=== PATIENT | female | born 1970 | race American Indian/Alaskan Native ===

== ENCOUNTER 2018-08-10 18:50 | Emergency (ER) | payer SELFPAY ==
[2018-08-10 19:37] VITALS: BMI 26.6
[2018-08-10 19:41] VITALS: RESP 18
--- NOTE | 2018-08-10 20:54 | ED PDOC ---
Arrival/HPI - General Historian: Patient - History of Present Illness Narrative History of Present Illness (Text): 08/10/18 20:15 48 year old female, whose past medical history includes tonsillectomy, presents to the emergency department complaining of sore throat for the past 4 days associated with nasal congestion. Patient states the sore throat is worse with swallowing and with neck movement. She denies taking any medications for the pain. Patient denies any fever, chills, cough, shortness of breath, chest pain, abdominal pain, nausea, vomiting, diarrhea, headache, vision changes, dizziness, or any other complaints. Time/Duration: Other (4 days) Symptom Onset: Gradual Symptom Course: Unchanged Activities at Onset: Light Context: Home <Samara Whaley - Last Filed: 08/11/18 01:54> <Ash Plunkett - Last Filed: 08/11/18 05:53> - General Chief Complaint: ENT Problem Past Medical History - Provider Review Nursing Documentation Reviewed: Yes - Infectious Disease Hx of Infectious Diseases: None - Tetanus Immunization Tetanus Immunization: Unknown - Past Medical History Past Medical History: No Previous - Cardiac Hx Cardiac Disorders: No - Pulmonary Hx Respiratory Disorders: No - Neurological Hx Neurological Disorder: No - HEENT Hx HEENT Disorder: Yes Other/Comment: PT. FOR SURGERY 11/09/15-DX: CHRONIC TONSILLITIS - Renal Hx Renal Disorder: No - Endocrine/Metabolic Hx Endocrine Disorders: No - Hematological/Oncological Hx Blood Disorders: No - Integumentary Hx Dermatological Disorder: No - Musculoskeletal/Rheumatological Hx Musculoskeletal Disorders: No - Gastrointestinal Hx Gastrointestinal Disorders: No - Genitourinary/Gynecological Hx Genitourinary Disorders: Yes Hx Sexually Transmitted Diseases: Yes (MANY YEARS AGO) - Psychiatric Hx Psychophysiologic Disorder: No Hx Substance Use: No - Surgical History Hx Appendectomy: Yes Other/Comment: LEFT BREAST CYST REMOVED UNDER LOCAL ANESTHESIA. - Anesthesia Hx Anesthesia: Yes (LOCAL ONLY) Hx Anesthesia Reactions: No Hx Malignant Hyperthermia: No - Suicidal Assessment Feels Threatened In Home Enviroment: No <Samara Whaley - Last Filed: 08/11/18 01:54> Family/Social History - Physician Review Nursing Documentation Reviewed: Yes Family/Social History: No Known Family HX Smoking Status: Light Smoker < 10 Cigarettes Daily Hx Alcohol Use: Yes Frequency of alcohol use: Socially Hx Substance Use: No Hx Substance Use Treatment: No <Samara Whaley - Last Filed: 08/11/18 01:54> Allergies/Home Meds <Samara Whaley - Last Filed: 08/11/18 01:54> <DimitriosAsh lloyd - Last Filed: 08/11/18 05:53> Allergies/Adverse Reactions: Allergies No Known Allergies Allergy (Verified 10/30/16 17:58) Review of Systems - Physician Review All systems were reviewed & negative as marked: Yes - Review of Systems Constitutional: absent: Fevers, Other (chills) Eyes: absent: Vision Changes ENT: Sore Throat, Other (Nasal congestion) Respiratory: absent: SOB Cardiovascular: absent: Chest Pain Gastrointestinal: absent: Abdominal Pain, Diarrhea, Nausea, Vomiting Genitourinary Female: absent: Dysuria Neurological: absent: Headache, Dizziness <Samara Whaley - Last Filed: 08/11/18 01:54> Physical Exam Vital Signs Reviewed: Yes Vital Signs Temp Pulse Resp BP Pulse Ox 08/10/18 19:40 99 F 89 18 124/78 100 Temperature: Afebrile Blood Pressure: Normal Pulse: Regular Respiratory Rate: Normal Appearance: Positive for: Well-Appearing, Non-Toxic, Comfortable Pain Distress: None Mental Status: Positive for: Alert and Oriented X 3 - Systems Exam Head: Present: Atraumatic, Normocephalic Pupils: Present: PERRL Extroacular Muscles: Present: EOMI Conjunctiva: Present: Normal Mouth: Present: Moist Mucous Membranes Pharnyx: Present: ERYTHEMA (Mild). No: EXUDATE, Other (No tonsils) Neck: Present: Normal Range of Motion, Other ((+) Mild tenderness to cervical paraspinal muscles bilaterally. (+)Frontal tonsillar lymph nodes swelling bilat erally (-) no tenderness). No: Meningeal Signs Respiratory/Chest: Present: Clear to Auscultation, Good Air Exchange. No: Respiratory Distress, Accessory Muscle Use Cardiovascular: Present: Regular Rate and Rhythm, Normal S1, S2. No: Murmurs Abdomen: No: Tenderness, Distention, Peritoneal Signs Neurological: Present: GCS=15, CN II-XII Intact, Speech Normal Skin: Present: Warm, Dry, Normal Color. No: Rashes Psychiatric: Present: Alert, Oriented x 3, Normal Insight, Normal Concentration <Samara Whaley - Last Filed: 08/11/18 01:54> Vital Signs Temp Pulse Resp BP Pulse Ox 08/10/18 23:08 98.3 F 74 18 130/73 98 08/10/18 19:40 99 F 89 18 124/78 100 <DimitriosAsh - Last Filed: 08/11/18 05:53> Medical Decision Making ED Course and Treatment: 08/10/18 20:15 Impression: 48 year old female presents complaining of sore throat for the past 4 days associated with nasal congestion. Sore throat worse when swallowing and neck movement. Plan: -- CT Neck Soft tissue w/ contrast -- Labs -- Toradol, Tylenol -- Throat culture, Urine Culture -- Influenza A B, Rapid Strep -- Urinalysis w/ micro -- Reassess and disposition Progress Notes: EXAM: CT Neck with Intravenous Contrast. Electronically signed on Aug 10, 2018 11:46:23 PM EST by: Jose F Mac M.D IMPRESSION: Sinusitis. Unremarkable CT neck with IV contrast otherwise. 08/10/18 23:08 On reevaluation, patient is in no acute distress. I have discussed the results and plan with the patient, who expresses understanding. Patient given the opportunity to ask question, all questions were answered and there is agreement with the plan to discharge the patient home with prescription for Amoxicillin. Patient is stable for discharge. Patient was instructed to follow up with physician/clinic in 1-2 days or return if symptoms persist/worsen or new concerning symptoms arise. - Lab Interpretations I have reviewed the lab results: Yes - RAD Interpretation Radiology Orders: 08/10/18 20:30 NECK SOFT TISSUE W/CONTRAST [CT] Stat <Samara Whaley - Last Filed: 08/11/18 01:54> - Lab Interpretations Lab Results: 08/10/18 21:00 08/10/18 21:00 Lab Results 08/10/18 22:19: Urine Color Yellow, Urine Appearance Clear, Urine pH 6.0, Ur Specific [place] 1.020, Urine Protein Negative, Urine Glucose (UA) Negative, Urine Ketones Negative, Urine Blood Trace-intact H, Urine Nitrate Negative, Urine Bilirubin Negative, Urine Urobilinogen 0.2, Ur Leukocyte Esterase Negative, Urine RBC 0 - 2, Urine WBC 0 - 2, Ur Epithelial Cells 1 - 3, Urine Bacteria Neg 08/10/18 22:19: Grp A Beta Strep Ag Negative 08/10/18 21:00: Influenza Typ A,B (EIA) Negative for flu a/b 08/10/18 21:00: Sodium 137, Potassium 3.7, Chloride 105, Carbon Dioxide 24, A nion Gap 12, BUN 9, Creatinine 0.6 L, Est GFR ( Amer) > 60, Est GFR (Non- Af Amer) > 60, Random Glucose 97, Calcium 9.0, Total Bilirubin 0.3, AST 19, ALT 24, Alkaline Phosphatase 72, Total Protein 7.3, Albumin 3.8, Globulin 3.5, Albumin/Globulin Ratio 1.1 08/10/18 21:00: WBC 12.8 H, RBC 3.83, Hgb 12.0, Hct 35.4 L, MCV 92.4, MCH 31.3, MCHC 33.9, RDW 12.9, Plt Count 238, MPV 11.0, Gran % 76.0 H, Lymph % (Auto) 17.4 L, [place] % (Auto) 5.9, Eos % (Auto) 0.6 L, Baso % (Auto) 0.1, Gran # 9.73 H, Lymph # (Auto) 2.2, [place] # (Auto) 0.8 H, Eos # (Auto) 0.1, Baso # (Auto) 0.01 - RAD Interpretation Radiology Orders: 08/10/18 20:30 NECK SOFT TISSUE W/CONTRAST [CT] Stat - Medication Orders Current Medication Orders: Discontinued Medications Acetaminophen (Tylenol 325mg Tab) 650 mg PO STAT STA Stop: 08/10/18 23:10 Last Admin: 08/10/18 23:51 Dose: 650 mg MAR Pain/Vitals Document 08/10/18 23:51 RG (Rec: 08/10/18 23:53 [facility] [place]-ER-20) Pain Reassessment Is This A Pain ReAssessment? Yes Sleep Is patient sleeping during reassessment? No Presence of Pain Presence of Pain Yes Location Pain Location Body Site Neck Description Acute Ketorolac Tromethamine (Toradol) 30 mg IVP STAT STA Stop: 08/10/18 21:46 Last Admin: 08/10/18 22:07 Dose: 30 mg MAR Pain Assessment Document 08/10/18 22:07 (Rec: 08/10/18 22:07 [facility]-ER-20) Pain Reassessment Is this a pain reassessment? Yes Presence of Pain Presence of Pain Yes Location Pain Location Body Site Neck Description Description Acute Intensity of Pain at present 5 IVP Administration Document 08/10/18 22:07 (Rec: 08/10/18 22:07 [facility]-ER-20) Charges for Administration # of IVP Administrations 1 Re-Assess: MAR Pain Assessment Document 08/10/18 23:07 (Rec: 08/10/18 23:53 [facility]-ER-20) Pain Reassessment Is this a pain reassessment? Yes Sleep Is patient sleeping during reassessment? No Presence of Pain Presence of Pain Yes <Ash Plunkett - Last Filed: 08/11/18 05:53> - Scribe Statement The provider has reviewed the documentation as recorded by the Josue Payne Provider Scribe Attestation: All medical record entries made by the Josue were at my direction and personally dictated by me. I have reviewed the chart and agree that the record accurately reflects my personal performance of the history, physical exam, medical decision making, and the department course for this patient. I have also personally directed, reviewed, and agree with the discharge instructions and disposition. <Samara Whaley - Last Filed: 08/11/18 01:54> - PA / [employer] / Resident Statement / has reviewed & agrees with the documentation as recorded. / has examined the patient and agrees with the treatment plan. <Ash Plunkett - Last Filed: 08/11/18 05:53> Disposition/Present on Arrival - Present on Arrival History of DVT/PE: No History of Uncontrolled Diabetes: No Urinary Catheter: No History of Decub. Ulcer: No History Surgical Site Infection Following: None <Samara Whaley - Last Filed: 08/11/18 01:54> - Present on Arrival Any Indicators Present on Arrival: No - Disposition Have Diagnosis and Disposition been Completed?: Yes Disposition Time: 01:00 <Ash Plunkett - Last Filed: 08/11/18 05:53> - Disposition Diagnosis: Sinusitis Disposition: HOME/ ROUTINE Condition: IMPROVED Discharge Instructions (ExitCare): Sinusitis in Adults Additional Instructions: Take antibiotic twice daily for 10 days Increase fluids to stay hydrated Followup with primary doctor within 2 days Return to ER for any new/worsening symptoms Prescriptions: Amoxicillin/Clavulanate [Augmentin 250-62.5] 875 mg PO Q12H #350 ml Referrals: Alex Bateman DO [Staff Provider] - Follow up with primary Forms: Cignis (Nepali)
[2018-08-10 21:17] LABS: BASO # 0.01 K/mm3 (0.0-2.0); BASO % 0.1 % (0.0-3.0); EOS # 0.1 (0.0-0.7); EOS % 0.6 % (1.5-5.0); GRAN # 9.73 (1.4-6.5); LYMPH # 2.2 (1.2-3.4); LYMPH % 17.4 % (22.0-35.0); MEAN CELL VOLUME 92.4 fl (80.0-105.0); MEAN CORPUSCULAR HEMOGLOBIN 31.3 pg (25.0-35.0); MEAN CORPUSCULAR HGB CONC 33.9 g/dl (31.0-37.0); MONO # 0.8 (0.1-0.6); MONO % 5.9 % (1.0-6.0); RBC 3.83 10^6/uL (3.5-6.1); RED CELL DISTRIBUTION WIDTH 12.9 % (11.5-14.5); WHITE BLOOD COUNT 12.8 10^3/uL (4.5-11.0)
[2018-08-10 21:43] LABS: ALB/GLOB RATIO 1.1 (1.1-1.8); ALBUMIN 3.8 g/dL (3.0-4.8); ALT/SGPT 24 U/L (7-56); AST/SGOT 19 U/L (14-36); BLOOD UREA NITROGEN 9 mg/dL (7-21); GFR NON-AFRICAN AMERICAN > 60
[2018-08-10] MEDS ORDERED: Iohexol 350 MG/100 ML VIAL ONE (22:23)
[2018-08-10 22:39] LABS: URINE APPEARANCE CLEAR (CLEAR); URINE BILIRUBIN NEGATIVE (NEGATIVE); URINE BLOOD TRACE-INTACT (NEGATIVE); URINE COLOR YELLOW (YELLOW); URINE GLUCOSE (UA) NEGATIVE (NEGATIVE); URINE LEUKOCYTE ESTERASE NEGATIVE Leu/uL (NEGATIVE); URINE PROTEIN NEGATIVE mg/dL (<30 mg/dL); URINE UROBILINOGEN 0.2 E.U./dL (<1 E.U./dL)
[2018-08-10 22:54] LABS: URINE BACTERIA NEG (NEG); URINE RBC 0 - 2 /hpf (0-2); URINE WBC 0 - 2 /hpf (0-6)
[2018-08-10 23:09] VITALS: O2SAT 98
[2018-08-11 04:43] VITALS: BP 128/74; PULSE 89; TEMP 98.6
--- NOTE | 2018-08-11 08:41 | CT ---
Date of service: 08/10/2018 PROCEDURE: CT NECK WITH CONTRAST HISTORY: swollen neck, pain COMPARISON: None available. TECHNIQUE: CT of the neck with intravenous contrast. Coronal and sagittal reformats generated. Intravenous contrast dose: Radiation dose: Total exam DLP = 379.23 mGy-cm. This CT exam was performed using one or more of the following dose reduction techniques: Automated exposure control, adjustment of the mA and/or kV according to patient size, and/or use of iterative reconstruction technique. FINDINGS: NASOPHARYNX: Unremarkable. SUPRAHYOID NECK: Unremarkable oropharynx, oral cavity, parapharyngeal space and retropharyngeal space. INFRAHYOID NECK: Unremarkable larynx, hypopharynx, and supraglottic space. Vocal cords intact. MASS: None. GLANDS: Parotid and submandibular glands unremarkable. Normal size thyroid gland, without nodule. LYMPH NODES: Normal. No lymphadenopathy. CERVICAL SPINE: No fracture or focal lesion. VASCULAR STRUCTURES: Unremarkable. OTHER FINDINGS: None. IMPRESSION: Unremarkable contrast enhanced CT of the neck.
== END 2018-08-11 00:49 | disposition home or self-care (01) ==
LOC: ED 18:50
DX: J32.9 Chronic sinusitis, unspecified (principal); F17.210 Nicotine dependence, cigarettes, uncomplicated
CPT/HCPCS: 70491; 80053; 81001; 85025; 87070; 87086; 87430; 87804; 96374; 99283; J1885; Q9967